=== PATIENT | female | born 1990 | race Caucasian/White ===

== ENCOUNTER 2019-05-26 08:20 | Inpatient (IN) | payer BC ==
[2019-05-26 09:40] VITALS: BMI 37.0
[2019-05-26 09:41] LABS: BASO % 0.2 % (0-2.0); EOS % 1.7 % (0-4.5); HEMATOCRIT 34.3 % (32.4-45.2); HEMOGLOBIN 11.1 GM/dL (10.7-15.3); LYMPH % 11.9 % (8-40); MCHC 32.3 g/dl (32.0-36.0); MEAN CELL VOLUME 80.5 fl (80-96); MEAN PLT VOLUME 8.7 fl (7.5-11.1); MONO % 6.3 % (3.8-10.2); NEUT % 79.9 % (42.8-82.8); PLATELET COUNT 258 K/MM3 (134-434); RBC 4.26 M/mm3 (3.60-5.2); RDW 16.6 % (11.6-15.6); WHITE BLOOD COUNT 12.9 K/mm3 (4.0-10.0)
[2019-05-26 09:49] LABS: INR 1.02 (0.83-1.09)
[2019-05-26 09:52] LABS: ACTIVATED PTT 26.9 SECONDS (25.2-36.5)
[2019-05-26] MEDS ORDERED: DEXTROSE 5%-LACTATED RINGERS 1,000 ML IV SCH (10:00)
[2019-05-26 10:03] LABS: BLOOD UREA NITROGEN 6.4 mg/dL (7-18); CALCIUM 8.6 mg/dL (8.5-10.1); CREATININE 0.4 mg/dL (0.55-1.3); POTASSIUM 4.1 mmol/L (3.5-5.1)
[2019-05-26] MEDS ORDERED: DINOPROSTONE 10 MG VAGINAL SUPPOSITORY VG ONE (11:00)
[2019-05-26] MEDS ORDERED: BUTORPHANOL TARTRATE 1 MG/ML VIAL IVPB ONE (11:24)
[2019-05-26] MEDS ORDERED: PROMETHAZINE HCL 25 MG/1 ML VIAL IVPUSH ONE (11:24)
[2019-05-26] MEDS ORDERED: SODIUM PHOSPHATE/NA BIPHOS 133 ML ENEMA PR ONE (11:28)
--- NOTE | 2019-05-26 11:39 | HP ---
Past Medical History - Primary Care Physician PCP:: Etta Lieberman - Admission Chief Complaint: 29 yrs , 41.2 weeks iup admitted for induction of labor History of Present Illness: PNC at 2, [facility] wt gain 32 lbs panel : 12/16/18 O pos, Rpr nr, Hbsag neg, Rubella immune , Quantiferon neg , Varicella immune , Pap NILM, Hpv neg, Gc/c/t neg , CF screen neg 02/09/19 ; Gct 130, Quantiferon neg 04/27/19 : GBS pos, Gc/ct neg , 05/05/19 c/o pruritis rx benadryl &bile acids & LFT wnl sonogram : NT screen was not done, Quad screen neg , last sono on 05/22/19 : vx , luis 11.7, bpp8/8, efw 7'9" (3441gm ) surviellence in theclinic by NST done TDAP vaccine given History Source: Patient, Medical Record Limitations to Obtaining History: No Limitations - Past Medical History Cardiovascular: No: HTN, Murmur Pulmonary: No: Asthma Gastrointestinal: Yes: GERD, Other (none known) Hepatobiliary: Yes: Other (none known) Renal/: No: UTI ...: 1 ...LMP: 08/11/18 ... Weeks Gestation by Dates: 41.2 ...EDC by Dates: 05/18/19 ...EDC by Sono: 05/18/19 Heme/Onc: Yes: Other (none known) Infectious Disease: No: AIDS, C-Diff, Herpes Zoster, HIV, MRSA, STD's, Tuberculosis, VREF, Other Psych: No: Addictions, Anxiety, Bipolar, Depression, Panic, Psychosis, Schizophrenia, Other Endocrine: No: Raphael's Disease, Benham's Disease, Diabetes Insipidus, Diabetes Mellitus, Hyperparathyroidism, Hyperthyroidism, Hypothyroidism, Osteopenia, SIADH, Other - Past Surgical History Past Surgical History: Yes: None Hx Myomectomy: No Hx Transabdominal Cerclage: No - Smoking History Smoking history: Unknown if ever smoked Have you smoked in the past 12 months: No - Alcohol/Substance Use Hx Alcohol Use: No History of Substance Use: reports: None Home Medications - Allergies Allergies/Adverse Reactions: Allergies Allergy/AdvReac Type Severity Reaction Status Date / Time No Known Allergies Allergy Verified 05/26/19 09:43 - Home Medications Home Medications: Ambulatory Orders Prenat 115/Iron Fum/Folic/Dss [ 19 Tablet] 1 tab PO DAILY 05/09/19 Physical Exam - Maternity Vital Signs: Vital Signs Temperature 98.2 F 05/26/19 09:26 Pulse Rate 84 05/26/19 09:26 Respiratory Rate 18 05/26/19 09:26 Blood Pressure 118/61 05/26/19 09:26 O2 Sat by Pulse Oximetry (%) Constitutional: Yes: Well Nourished, No Distress Eyes: Yes: WNL HENT: Yes: WNL Neck: Yes: WNL Cardiovascular: Yes: WNL, Regular Rate and Rhythm Lungs: Clear to auscultation Breast(s): Yes: WNL - Abdominal Exam/OB Fundal Height: 40 Number of Fetuses: Single Presentation: Vertex Contractions: No Regularity: Irregular Intensity: Unaware Heart Rate (range): 145 Heart Rate Location: [facility] Category: I Accelerations: Uniform Decelerations: None - Vaginal Exam/OB Vaginal Bleediing: No Speculum Exam: No Dilatation (cm): close Effacement (%): 50 Amniotic Membrane Status: Intact Presentation: Vertex/Position Station: -3 (-3/-4) - Physical Exam Musculoskeletal: Yes: WNL Extremities: Yes: WNL. No: Calf Tenderness Edema: LLE: 1+, RLE: 1+ Integumentary: Yes: Other (h/o pruritis) Deep Tendon Reflex Grade: Normal +2 ...Motor Strength: WNL Psychiatric: Yes: WNL, Alert, Oriented - Labs Lab Results: CBC, BMP 05/26/19 09:05 05/26/19 09:05 Laboratory Tests 05/26/19 05/26/19 09:05 09:05 PT with INR 12.00 INR 1.02 PTT (Actin FS) 26.9 Blood Type O POSITIVE Antibody Screen Negative Problem List - Problems (1) Post term at 41 weeks gestation Code(s): O48.0 - POST-TERM ; Z3A.41 - 41 WEEKS GESTATION OF (2) Elective induction of labor planned Code(s): [id number] - Assessment/Plan 29 yrs 41.2 weeks , admitted for induction of labor. GBS pos Plan cervidil induction trial of labor for vaginal delivery Gbs prophylaxis with iv Ampicillin
[2019-05-26] MEDS ORDERED: PROMETHAZINE HCL 25 MG/1 ML VIAL ONE (12:24)
[2019-05-26] MEDS ORDERED: BUTORPHANOL TARTRATE 1 MG/ML VIAL ONE ×2 (12:24)
[2019-05-26] MEDS ORDERED: AMPICILLIN SODIUM 2 GM VIAL ONE (12:25)
--- NOTE | 2019-05-26 12:32 | HP ---
Past Medical History - Past Medical History Cardiovascular: No: HTN, Murmur Pulmonary: No: Asthma Gastrointestinal: Yes: GERD, Other (none known) Hepatobiliary: Yes: Other (none known) Renal/: No: UTI ...: 1 ...LMP: 08/11/18 ... Weeks Gestation by Dates: 41.2 ...EDC by Dates: 05/18/19 ...EDC by Sono: 05/18/19 Heme/Onc: Yes: Other (none known) Infectious Disease: No: AIDS, C-Diff, Herpes Zoster, HIV, MRSA, STD's, Tuberculosis, VREF, Other Psych: No: Addictions, Anxiety, Bipolar, Depression, Panic, Psychosis, Schizophrenia, Other Endocrine: No: Lockridge's Disease, Dann's Disease, Diabetes Insipidus, Diabetes Mellitus, Hyperparathyroidism, Hyperthyroidism, Hypothyroidism, Osteopenia, SIADH, Other - Past Surgical History Past Surgical History: Yes: None - Smoking History Smoking history: Unknown if ever smoked Have you smoked in the past 12 months: No - Alcohol/Substance Use Hx Alcohol Use: No History of Substance Use: reports: None Home Medications - Allergies Allergies/Adverse Reactions: Allergies Allergy/AdvReac Type Severity Reaction Status Date / Time No Known Allergies Allergy Verified 05/26/19 09:43 - Home Medications Home Medications: Ambulatory Orders Prenat 115/Iron Fum/Folic/Dss [ 19 Tablet] 1 tab PO DAILY 05/09/19 Physical Exam - Maternity Vital Signs: Vital Signs Temperature 98.2 F 05/26/19 09:26 Pulse Rate 84 05/26/19 09:26 Respiratory Rate 18 05/26/19 09:26 Blood Pressure 118/61 05/26/19 09:26 O2 Sat by Pulse Oximetry (%) - Labs Lab Results: CBC, BMP 05/26/19 09:05 05/26/19 09:05 Problem List - Problems (1) Post term at 41 weeks gestation Code(s): O48.0 - POST-TERM ; Z3A.41 - 41 WEEKS GESTATION OF (2) Elective induction of labor planned Code(s): [id number] -
--- NOTE | 2019-05-26 12:37 | PN ---
Progress Note (short form) - Note Progress Note: pt sresponded to cervidil tachysystole is noted pt sceaming with pain 12.30 FHR 140-150 bpm cat-1 uc q 1min vag : 2-3 cm/60%.UT vx -3 well applied to cx Plan cervidil removed stadol 2mg + phenrgan [address] trial of vag deli If Uc space out , will start pitocin augmentation Problem List - Problems (1) Post term at 41 weeks gestation Code(s): O48.0 - POST-TERM ; Z3A.41 - 41 WEEKS GESTATION OF (2) Elective induction of labor planned Code(s): [id number] -
[2019-05-26] MEDS ORDERED: AMPICILLIN - 2 GM in SODIUM CHLORIDE 100 ML IVPB ONE (13:00)
[2019-05-26] MEDS ORDERED: FENTANYL/BUPIVACAINE/NS/PF - PCEA - 50 ML DISP.SYRIN EP ONE ×2 (14:42→20:00)
[2019-05-26] MEDS ORDERED: FENTANYL/BUPIVACAINE/NS/PF - PCEA - 50 ML DISP.SYRIN EP SCH (15:10)
--- NOTE | 2019-05-26 15:14 | PN ---
Progress Note, Labor Vaginal Exam #1 Labor Exam Date: 05/26/19 Labor Exam Time: 14:30 Heart Rate (range): 130 Dilatation: 5 Effacement (%): 80 Amniotic Membrane Status: Ruptured Presentation: Vertex/Position Station: -2 Remarks: Uc 1-2 min fhr 130, cat -1 pt c/o pain, screaming again, drowsy stadol 2mg + phenrgan 25 mg iv given at 11.30 AM Plan epidural labor analgesia Selected Entries 05/26/19 12:50 Temperature 98.2 F Pulse Rate 110 H Blood Pressure 126/76 Vaginal Exam #2 Labor Exam Date: 05/26/19 Labor Exam Time: 17:15 Heart Rate (range): 130 Dilatation: 6-7 Effacement (%): 80 Amniotic Membrane Status: Ruptured (srom at 2.30 PM clear liquid) Presentation: Vertex/Position Station: -2 (caput to-1) Remarks: fhr at 17 .00 hr down to 90 bpm , deep variable decel, cat-2 , pt turned to lt side , fhr recovered to cat-1 base line 140-150, scalp electrode applied uc 1-2 min pitocin was started at 4.15 PM , stopped at 4.45 , max 2iu/min was given Selected Entries 05/26/19 17:15 Pulse Rate 98 H Blood Pressure 106/66 Vaginal Exam #3 Labor Exam Date: 05/26/19 Labor Exam Time: 19:36 Heart Rate (range): 140 Dilatation: 6-7 Effacement (%): 80 Amniotic Membrane Status: Ruptured Presentation: Vertex/Position Station: -1 (caput, cx edematous on lt side) Remarks: after exam fhr down to 90-100bpm x 2 min cat-2 recovered , otherwise fhr cat-1 uc 2-3 min Selected Entries 05/26/19 05/26/19 05/26/19 19:00 19:15 19:30 Temperature 99.8 F H Pulse Rate 117 H 111 H 139 H Blood Pressure 128/68 125/63 126/60 05/26/19 19:45 Temperature Pulse Rate 111 H Blood Pressure 121/[address] trial of labor Vaginal Exam #4 Labor Exam Date: 05/26/19 Labor Exam Time: 21:30 Heart Rate (range): 140 Dilatation: 7 Effacement (%): 90 Amniotic Membrane Status: Ruptured Presentation: Vertex/Position Station: 0 (caput, moulding) Remarks: fhr cat-1 uc dysfunctional,mild tp moderate , 1-2-3 min plan pit augmentation at 0.5miu. to improve intensity of UC Selected Entries 05/26/19 05/26/19 05/26/19 21:30 21:38 22:00 Temperature 99.3 F 99.7 F H Pulse Rate 126 H Blood Pressure 124/[address] trial of labor Vaginal Exam #5 Labor Exam Date: 05/26/19 Labor Exam Time: 23:35 Heart Rate (range): 140 Dilatation: 7 Effacement (%): 90 Amniotic Membrane Status: Ruptured Presentation: Vertex/Position Station: 0 (caput , moulding) Remarks: fhr cat-2 , variable decels , 90-140, uc 1-2-3 min pt stopped Imp : FTP ( protracted active phase of labor ) fhr cat-2 , ( non reassuring FHR ) Plan stop trial of labor delivery by Primary LFT/C/Section Selected Entries 05/26/19 05/26/19 22:30 23:00 Temperature 98.5 F Pulse Rate 122 H Blood Pressure 122/61
[2019-05-26] MEDS ORDERED: ELECTROLYTE-148 SOLN 1,000 ML IV SCH (15:15)
[2019-05-26] MEDS ORDERED: NALOXONE HCL 0.4 MG/ML VIAL IVPUSH PRN (15:35)
[2019-05-26] MEDS ORDERED: OXYTOCIN 30 UNITS in 0.9% NS 30 UNIT/500 ML INFUS.BAG IVPB SCH (15:45)
[2019-05-26] MEDS ORDERED: AMPICILLIN SODIUM 1 GM VIAL ONE ×2 (16:17→20:25)
[2019-05-26] MEDS ORDERED: OXYTOCIN 30 UNITS in 0.9% NS 30 UNIT/500 ML INFUS.BAG IVPB ONE (16:17)
[2019-05-26] MEDS: AMPICILLIN - 1 GM in SODIUM CHLORIDE 100 ML IVPB SCH ×2 (16:37→20:33)
[2019-05-26] MEDS ORDERED: CITRIC ACID/SODIUM CITRATE 30 ML UNIT-DOSE CUP PO ONE (23:45)
[2019-05-26] MEDS ORDERED: OXYTOCIN 20 UNITS in 0.9% NS 20 UNIT/1,000 ML INFUS.BAG IV ONE (23:49)
[2019-05-27] MEDS ORDERED: SODIUM BICARBONATE 8.4% 50 MEQ/50 ML VIAL ONE (00:05)
[2019-05-27] MEDS ORDERED: LIDO 2%/EPI 1:200000 PRESRVFRE (20 ML SDVIAL) ONE (00:05)
[2019-05-27] MEDS ORDERED: OXYTOCIN 20 UNITS in 0.9% NS 20 UNIT/1,000 ML INFUS.BAG IV ONE (00:12)
[2019-05-27] MEDS ORDERED: ceFAZolin SODIUM 1 GM VIAL ONE (00:18)
[2019-05-27] MEDS ORDERED: METHYLERGONOVINE MALEATE 0.2 MG/1 ML AMP IM PRN (01:30)
[2019-05-27] MEDS ORDERED: IBUPROFEN 800 MG/8 ML IJ IVPB PRN (01:30)
[2019-05-27] MEDS ORDERED: OXYTOCIN 20 UNITS in 0.9% NS 20 UNIT/1,000 ML INFUS.BAG IV SCH (01:30)
[2019-05-27] MEDS ORDERED: ONDANSETRON 4 MG/2 ML VIAL IVPUSH PRN (01:37)
--- NOTE | 2019-05-27 01:43 | OP ---
Operative Note - Note: Operative Date: 05/27/19 Pre-Operative Diagnosis: 41 wks, failure to progress , non reassuring FHR Operation: Primary LFTC/Section Findings: TOB 12.33 AM, , Baby Boy, Vx, ROP position, 9/9 , Wt 7"6", Ht 19 " Amniotic Fluid clear Both tubes & ovaries normal French Folding Machine Operator Dr Recio Surgeon: Etta Lieberman Lecturer In Marketing: Jay Lagunas Anesthesiologist/STUNNER: Phuc Pickard Anesthesia: Epidural Specimens Removed: placenta. cord segment for cord blood. cord blood Estimated Blood Loss (mls): 700 Drains, Volume Out (mls): 400 (urine delonte color in tubing, in the bag blood stained ) Fluid Volume Replaced (mls): 800 (2 gm iv ancef given ) Operative Report Dictated: Yes
--- NOTE | 2019-05-27 02:02 | PN ---
Delivery - Delivery Section: Primary, Low Flap Transverse (Indication : 41 weeks, Failure to progress in labor , non reassuring FHR) Type of Anesthesia: Epidural EBL (cc): 700 (Intraop friedman output 400 ml, delonte in tubing, blood stained in the bag ) Delivery, Single - Stages of Labor Date 1st Stage Initiatied: 05/26/19 Time 1st Stage Initiated: 12:00 Date of Delivery: 05/27/19 Time of Delivery: 12:33 Date Placenta Delivered: 05/27/19 Time Placenta Delivered: 12:35 Placenta: Yes: Manual Removal, Uterine Exploration - Condition of Infant Surgeon Assistant/Meat Inspector Present: Yes Name: Lolis Recio Infant Gender: Male Weight: 7 lb 6 oz Position: Right, OP Total Hours ROM (Hrs/Mins): 10hrs, 3 min - 1 Minute Total Score: 9 10 Minutes Total Score: 9 - [place] Feeding Plan Initial Plan: Elected not to breastfeed exclusively throughout hospitalization Remarks - Remarks Remarks: 29 yrs , 41 weeks for induction of labor pnc at [address] [place] [address] GBS pos, prophylaxis Iv ampicillin x3 doses Intraop 2 gm Iv ancef Intraop course uneventful . post Op Temp 99.3, 118/58, pulse 117/min
[2019-05-27] MEDS: AMPICILLIN - 1 GM in SODIUM CHLORIDE 100 ML IVPB SCH (04:13)
[2019-05-27] MEDS: ACETAMINOPHEN 325 MG TABLET (FP) PO PRN ×2 (07:31→15:32)
[2019-05-27] MEDS ORDERED: CEFAZOLIN 1 GM/D5W 1 GM/50 ML BAG IVPB SCH (08:00)
[2019-05-27] MEDS: CEFAZOLIN 1 GM/D5W 1 GM/50 ML BAG IVPB SCH ×5 (08:00→23:53)
--- NOTE | 2019-05-27 08:20 | OP ---
DATE OF OPERATION: 05/27/2019 PREOPERATIVE DIAGNOSIS: 41-week , failure to progress, nonreassuring heart. OPERATION: Primary low flap transverse section. SURGEON: Etta Lieberman MD SUSTAINABLE DESIGN COORDINATOR SURGEON: Jay Lagunas MD TRANSIT PLANNING MANAGER: Cherry Recio MD ANESTHESIOLOGIST: Phuc Pickard DO ANESTHESIA: Spinal. FINDINGS: This is a 29-year-old 1, para 0. She is 41 weeks . Was admitted for induction of labor. Cervidil was inserted. Cervix was closed, and within 1-1/2 hours she started developing uterine contractions, tachysystole, and she had dilated to 2 cm. Cervidil was removed, and patient was given Stadol. Patient continued to have contractions on her own and then she received epidural. She was 5 cm dilated. That was at 2:30 PM. She ruptured the membranes spontaneously. She was 5-6 and 6-7 at 5:30. She dilated only up to 7 cm until 11:30, and station was -1, caput large, and periodically she was having decelerations, and she had a low-grade fever of 99.8 maximum. So it was decided to dlv the patient by C section. Before the surgery, the urine was blood stained, and the Swanson bag was emptied before starting the C section. DESCRIPTION OF PROCEDURE: Abdomen was shaved, prepped. Swanson catheter was placed, and consent was taken. SCD stockings were placed. She was taken to the operating room table, and she was in supine position. Epidural analgesia was converted into epidural anesthesia. Abdomen was painted and draped in usual manner and then the skin incision, Pfannenstiel incision, was made in skin, subcutaneous tissue. Anterior rectus sheath was incised transversely. Bleeding points were clamped and cauterized. Rectus muscle was from the rectus sheath. Parietal peritoneum was opened vertically, and the lower flap bladder peritoneum was incised transversely. The bladder was very high in the middle of the incision, and carefully the bladder was pushed down then the lower uterine segment was incised above the bladder reflection, and uterine incision was extended laterally. The baby was delivered from ROP position at 12:33 AM. Amniotic fluid was clear. Immediate suction oral and nasal was done after the delivery of the head then the rest of the body was delivered. Cord was clamped, cut. Cord blood was collected, and cord segment was sent for the cord blood gases. Also placenta was removed completely with the membranes. Uterine cavity was clean. There was a subserous fibroid noted above the bowel 2 cm above the incision. It was about 4 cm, round, subserous fibroid. There were small other seedlings noted. Then uterine incision was closed with 2 layers. First layer was a continuous locking with a Biosyn 0 suture. Second layer was a continuous intermittent locking with a Biosyn 0 suture. Hemostasis was verified, and the bladder peritoneum was closed with a Biosyn single suture, and both tubes and ovaries were normal. Irrigation was done. Sponge, needle, needle count was correct, and the closure of the abdomen was done. Parietal peritoneum was closed with a Vicryl 0 suture. Muscles were approximated together with a Vicryl 0 suture. Interrupted sutures were taken. Anterior rectus sheath was taken with a Vicryl 0 suture. Continuous sutures were taken. Then subcutaneous tissue was approximated with interrupted Vicryl 0 sutures. The skin was approximated with the patricia. Patient tolerated procedure well, and the pressure dressing was given. Blood clots were removed from the vagina, and patient then was transferred to the recovery room in stable condition. Estimated blood loss was 700 mL. Intraoperative urine output was about 400 mL in the catheter tube. The urine was delonte color in the bag. It was blood-stained urine. She received 2 g of IV Ancef prior to the incision. She was GBS positive, so she was receiving ampicillin prophylaxis during the labor. She received total of 3 doses. Patient was transferred to the recovery room in stable condition. Ryan [id number]
[2019-05-27 08:41] LABS: BASO % 0.1 % (0-2.0); EOS % 0.2 % (0-4.5); HEMATOCRIT 29.5 % (32.4-45.2); HEMOGLOBIN 9.7 GM/dL (10.7-15.3); LYMPH % 5.7 % (8-40); MCH 26.5 pg (25.7-33.7); MCHC 32.9 g/dl (32.0-36.0); MEAN CELL VOLUME 80.6 fl (80-96); MEAN PLT VOLUME 8.5 fl (7.5-11.1); MONO % 3.9 % (3.8-10.2); NEUT % 90.1 % (42.8-82.8); PLATELET COUNT 230 K/MM3 (134-434); RBC 3.66 M/mm3 (3.60-5.2); RDW 16.8 % (11.6-15.6); WHITE BLOOD COUNT 16.8 K/mm3 (4.0-10.0)
[2019-05-27] MEDS ORDERED: FLU VACC QS2019-20(6MOS UP)/PF 60 MCG/0.5 ML SYRINGE IM ONE (09:00)
--- NOTE | 2019-05-27 15:15 | PN ---
Post Progress Note - Subjective Subjective: no c/o pain , pain scale 4/10 , c/o itching Post Day: 0 Type of Delivery: Primary C/S Vital Signs: Vital Signs Temperature 99.8 F H 05/27/19 08:00 Pulse Rate 121 H 05/27/19 08:00 Respiratory Rate 20 05/27/19 13:00 Blood Pressure 110/54 L 05/27/19 08:00 O2 Sat by Pulse Oximetry (%) 98 05/27/19 02:15 Breast Exam: Yes: Soft, Other (plans to BF ). No: Engorged Uterus: Yes: Fundus Firm, Fundus below umbilicus Incision: Yes: Dressing dry and intact. No: Redness Abdomen/GI: Yes: Abdomen soft (bs active ), Abdominal Distention (obese abdomen ), Tender, Tolerating PO (po clear fluid ). No: Passing flatus Lochia: Yes: Rubra Lochia, amount: Moderate Extremities: Yes: Calves non-tender, Edema (scd in situ ) Perineum: Yes: Intact Activity: Other (pt not oob yet ) - Labs Labs: CBC WBC 16.8 K/mm3 (4.0-10.0) H 05/27/19 08:15 RBC 3.66 M/mm3 (3.60-5.2) 05/27/19 08:15 Hgb 9.7 GM/dL (10.7-15.3) L 05/27/19 08:15 Hct 29.5 % (32.4-45.2) L 05/27/19 08:15 MCV 80.6 fl (80-96) 05/27/19 08:15 MCH 26.5 pg (25.7-33.7) 05/27/19 08:15 MCHC 32.9 g/dl (32.0-36.0) 05/27/19 08:15 RDW 16.8 % (11.6-15.6) H 05/27/19 08:15 Plt Count 230 K/MM3 (134-434) 05/27/19 08:15 MPV 8.5 fl (7.5-11.1) 05/27/19 08:15 Absolute Neuts (auto) 15.1 K/mm3 (1.5-8.0) H 05/27/19 08:15 Neutrophils % 90.1 % (42.8-82.8) H 05/27/19 08:15 Lymphocytes % 5.7 % (8-40) L D 05/27/19 08:15 Monocytes % 3.9 % (3.8-10.2) 05/27/19 08:15 Eosinophils % 0.2 % (0-4.5) D 05/27/19 08:15 Basophils % 0.1 % (0-2.0) 05/27/19 08:15 Nucleated RBC % 0 % (0-0) 05/27/19 08:15 Other Findings, Remarks: i/o 3150/3250 Rs cta cvs sinus tachycardia Problem List - Problems (1) Post term at 41 weeks gestation Code(s): O48.0 - POST-TERM ; Z3A.41 - 41 WEEKS GESTATION OF (2) Elective induction of labor planned Code(s): [id number] - (3) Failure to progress in labor Code(s): O62.2 - OTHER UTERINE INERTIA (4) Non-reassuring heart rate or rhythm affecting management of fetus Code(s): ENX0019 - (5) delivery due to maternal disorder, delivered, curr hospitaliz Code(s): O99.89 - OTH DISEASES AND CONDITIONS COMPL PREG/CHLDBRTH (6) Status post section routine follow-up Code(s): Z39.2 - ENCOUNTER FOR ROUTINE FOLLOW-UP; Z98.891 - HISTORY OF UTERINE SCAR FROM PREVIOUS SURGERY Assessment/Plan po c/section , tachycardia, low grade fever post op plan encourage po fluids, ambulation, movements in the bed , deep breathing ex
[2019-05-27] MEDS: IBUPROFEN 600 MG TABLET (FP) PO PRN ×2 (15:30→23:51)
[2019-05-27] MEDS: ENOXAPARIN NA (PORCINE) 40 MG/0.4 ML DISP.SYRIN SQ SCH (15:30)
[2019-05-27] MEDS: SIMETHICONE 80 MG TAB.CHEW (FP) PO PRN ×2 (15:30→23:50)
[2019-05-27] MEDS: oxyCODONE HCL 5 MG TABLET PO PRN ×2 (16:43→23:50)
[2019-05-28] MEDS ORDERED: BISACODYL 10 MG SUPP.RECT RC PRN (01:31)
[2019-05-28 08:07] LABS: BASO % 0.1 % (0-2.0); EOS % 0.8 % (0-4.5); HEMATOCRIT 30.6 % (32.4-45.2); HEMOGLOBIN 9.8 GM/dL (10.7-15.3); LYMPH % 6.1 % (8-40); MEAN CELL VOLUME 81.3 fl (80-96); MEAN PLT VOLUME 8.5 fl (7.5-11.1); MONO % 5.1 % (3.8-10.2); NEUT % 87.9 % (42.8-82.8); PLATELET COUNT 247 K/MM3 (134-434); RBC 3.76 M/mm3 (3.60-5.2); RDW 16.8 % (11.6-15.6); WHITE BLOOD COUNT 17.8 K/mm3 (4.0-10.0)
--- NOTE | 2019-05-28 08:27 | PN ---
Post Progress Note - Subjective Subjective: c/o pain scale 6/10 voiding without difficulty Post Day: 1 Type of Delivery: Primary C/S Vital Signs: Vital Signs Temperature 97.9 F 05/27/19 22:00 Pulse Rate 90 05/27/19 22:00 Respiratory Rate 18 05/28/19 01:00 Blood Pressure 113/63 05/27/19 22:00 O2 Sat by Pulse Oximetry (%) 98 05/27/19 02:15 Breast Exam: Yes: Soft (BF). No: Engorged Uterus: Yes: Fundus Firm, Fundus below umbilicus, Non-tender Incision: Yes: [place] intact. No: Redness, Oozing Abdomen/GI: Yes: Abdomen soft (bs active ), Abdominal Distention (obese abdomen) , Tender, Passing flatus, Tolerating PO (po fluids) Lochia: Yes: Rubra Lochia, amount: Moderate Extremities: Yes: Calves non-tender Perineum: Yes: Intact Activity: Ambulating - Labs Labs: CBC WBC 16.8 K/mm3 (4.0-10.0) H 05/27/19 08:15 RBC 3.66 M/mm3 (3.60-5.2) 05/27/19 08:15 Hgb 9.7 GM/dL (10.7-15.3) L 05/27/19 08:15 Hct 29.5 % (32.4-45.2) L 05/27/19 08:15 MCV 80.6 fl (80-96) 05/27/19 08:15 MCH 26.5 pg (25.7-33.7) 05/27/19 08:15 MCHC 32.9 g/dl (32.0-36.0) 05/27/19 08:15 RDW 16.8 % (11.6-15.6) H 05/27/19 08:15 Plt Count 230 K/MM3 (134-434) 05/27/19 08:15 MPV 8.5 fl (7.5-11.1) 05/27/19 08:15 Absolute Neuts (auto) 15.1 K/mm3 (1.5-8.0) H 05/27/19 08:15 Neutrophils % 90.1 % (42.8-82.8) H 05/27/19 08:15 Lymphocytes % 5.7 % (8-40) L D 05/27/19 08:15 Monocytes % 3.9 % (3.8-10.2) 05/27/19 08:15 Eosinophils % 0.2 % (0-4.5) D 05/27/19 08:15 Basophils % 0.1 % (0-2.0) 05/27/19 08:15 Nucleated RBC % 0 % (0-0) 05/27/19 08:15 Selected Entries 05/27/19 08:00 Temperature 99.8 F H Pulse Rate 121 H Blood Pressure 110/54 L Laboratory Tests 05/27/19 05/28/19 08:15 07:39 WBC 16.8 H 17.8 H RBC 3.76 Hgb 9.7 L 9.8 L Hct 29.5 L 30.6 L MCV 81.3 MCH 26.0 MCHC 32.0 RDW 16.8 H Plt Count 230 247 MPV 8.5 Absolute Neuts (auto) 15.6 H Neutrophils % 90.1 H 87.9 H Lymphocytes % 5.7 L D 6.1 L Monocytes % 3.9 5.1 Eosinophils % 0.8 D Basophils % 0.1 Problem List - Problems (1) Post term at 41 weeks gestation Code(s): O48.0 - POST-TERM ; Z3A.41 - 41 WEEKS GESTATION OF (2) Elective induction of labor planned Code(s): [id number] - (3) Failure to progress in labor Code(s): O62.2 - OTHER UTERINE INERTIA (4) Non-reassuring heart rate or rhythm affecting management of fetus Code(s): [id number] - (5) delivery due to maternal disorder, delivered, curr hospitaliz Code(s): O99.89 - OTH DISEASES AND CONDITIONS COMPL PREG/CHLDBRTH (6) Status post section routine follow-up Code(s): Z39.2 - ENCOUNTER FOR ROUTINE FOLLOW-UP; Z98.891 - HISTORY OF UTERINE SCAR FROM PREVIOUS SURGERY Assessment/Plan ct po care ct iv ancef today also , wbc count still high advance to reg diet
[2019-05-28] MEDS: ENOXAPARIN NA (PORCINE) 40 MG/0.4 ML DISP.SYRIN SQ SCH (09:05)
[2019-05-28] MEDS: PRENATAL VITAMINS W/ FOLIC ACID TABLET (FP) PO SCH (09:05)
[2019-05-28] MEDS: CEFAZOLIN 1 GM/D5W 1 GM/50 ML BAG IVPB SCH ×2 (09:05→17:02)
[2019-05-28] MEDS: FERROUS SO4 325 MG TABLET (FP) PO SCH ×2 (09:05→21:28)
[2019-05-28] MEDS ORDERED: FLU VACCINE QUAD 60 MCG/0.5 ML (MDV 19-20) IM ONE (10:00)
[2019-05-28] MEDS: IBUPROFEN 600 MG TABLET (FP) PO PRN ×2 (14:33→23:50)
[2019-05-28] MEDS: ACETAMINOPHEN 325 MG TABLET (FP) PO PRN ×2 (14:34→23:50)
[2019-05-28] MEDS: SIMETHICONE 80 MG TAB.CHEW (FP) PO PRN ×2 (14:34→23:50)
--- NOTE | 2019-05-28 20:00 | PN ---
Progress Note (short form) - Note Progress Note: Anesthesiology Post-op POD#1 s/p C/S under epidural anesthesia. Pt. doing well today. No acute issues. Voiding without difficulty. Tolerating PO. No h/a. No apparent residual anesthesia. VSS. 29 y.o. woman with stable post-operative course. Continue management as per primary team.
[2019-05-28] MEDS: SENNOSIDES/DOCUSATE COMBO (SENNA PLUS) TABLET (UD) PO PRN (21:28)
[2019-05-29] MEDS: CEFAZOLIN 1 GM/D5W 1 GM/50 ML BAG IVPB SCH ×3 (01:20→18:16)
--- NOTE | 2019-05-29 08:28 | PN ---
Post Progress Note - Subjective Subjective: c/o pain 02/08 no foul smelling odor in lochia voiding without difficulty Post Day: 2 Type of Delivery: Primary C/S Vital Signs: Vital Signs Temperature 98 F 05/28/19 22:00 Pulse Rate 107 H 05/28/19 22:00 Respiratory Rate 18 05/28/19 22:00 Blood Pressure 123/73 05/28/19 22:00 O2 Sat by Pulse Oximetry (%) 98 05/27/19 02:15 Breast Exam: Yes: Soft, Other (BF & bottle feeding ). No: Engorged Uterus: Yes: Fundus Firm, Fundus below umbilicus, Other (tender ) Incision: Yes: [place] intact. No: Redness, Oozing Abdomen/GI: Yes: Abdomen soft, Abdominal Distention (obese abdomen ), Tender, Passing flatus (bm done ), Tolerating PO (diet) Lochia: Yes: Rubra Lochia, amount: Moderate Extremities: Yes: Calves non-tender Perineum: Yes: Intact Activity: Ambulating - Labs Labs: CBC WBC 17.8 K/mm3 (4.0-10.0) H 05/28/19 07:39 RBC 3.76 M/mm3 (3.60-5.2) 05/28/19 07:39 Hgb 9.8 GM/dL (10.7-15.3) L 05/28/19 07:39 Hct 30.6 % (32.4-45.2) L 05/28/19 07:39 MCV 81.3 fl (80-96) 05/28/19 07:39 MCH 26.0 pg (25.7-33.7) 05/28/19 07:39 MCHC 32.0 g/dl (32.0-36.0) 05/28/19 07:39 RDW 16.8 % (11.6-15.6) H 05/28/19 07:39 Plt Count 247 K/MM3 (134-434) 05/28/19 07:39 MPV 8.5 fl (7.5-11.1) 05/28/19 07:39 Absolute Neuts (auto) 15.6 K/mm3 (1.5-8.0) H 05/28/19 07:39 Neutrophils % 87.9 % (42.8-82.8) H 05/28/19 07:39 Lymphocytes % 6.1 % (8-40) L 05/28/19 07:39 Monocytes % 5.1 % (3.8-10.2) 05/28/19 07:39 Eosinophils % 0.8 % (0-4.5) D 05/28/19 07:39 Basophils % 0.1 % (0-2.0) 05/28/19 07:39 Nucleated RBC % 0 % (0-0) 05/28/19 07:39 Problem List - Problems (1) Post term at 41 weeks gestation Code(s): O48.0 - POST-TERM ; Z3A.41 - 41 WEEKS GESTATION OF (2) Elective induction of labor planned Code(s): [id number] - (3) Failure to progress in labor Code(s): O62.2 - OTHER UTERINE INERTIA (4) Non-reassuring heart rate or rhythm affecting management of fetus Code(s): [id number] - (5) delivery due to maternal disorder, delivered, curr hospitaliz Code(s): O99.89 - OTH DISEASES AND CONDITIONS COMPL PREG/CHLDBRTH (6) Status post section routine follow-up Code(s): Z39.2 - ENCOUNTER FOR ROUTINE FOLLOW-UP; Z98.891 - HISTORY OF UTERINE SCAR FROM PREVIOUS SURGERY Assessment/Plan post op c/s x2 still uterine tenderness , may be endomyometritis & anemia Plan ct iv ancef until today , may consider po antibiotics will discharge on po day #4
[2019-05-29] MEDS: FERROUS SO4 325 MG TABLET (FP) PO SCH ×2 (09:30→21:34)
[2019-05-29] MEDS: PRENATAL VITAMINS W/ FOLIC ACID TABLET (FP) PO SCH (09:30)
[2019-05-29] MEDS: ENOXAPARIN NA (PORCINE) 40 MG/0.4 ML DISP.SYRIN SQ SCH (09:32)
[2019-05-29] MEDS: IBUPROFEN 600 MG TABLET (FP) PO PRN ×2 (11:49→21:34)
[2019-05-29] MEDS: SIMETHICONE 80 MG TAB.CHEW (FP) PO PRN ×2 (11:49→21:34)
[2019-05-29] MEDS: ACETAMINOPHEN 325 MG TABLET (FP) PO PRN (11:49)
[2019-05-29] MEDS: SENNOSIDES/DOCUSATE COMBO (SENNA PLUS) TABLET (UD) PO PRN (21:34)
[2019-05-29] MEDS: oxyCODONE HCL 5 MG TABLET PO PRN (21:35)
[2019-05-30 07:19] LABS: BASO % 0.3 % (0-2.0); EOS % 3.3 % (0-4.5); HEMATOCRIT 29.4 % (32.4-45.2); HEMOGLOBIN 9.7 GM/dL (10.7-15.3); LYMPH % 12.2 % (8-40); MCH 26.6 pg (25.7-33.7); MCHC 33.1 g/dl (32.0-36.0); MEAN CELL VOLUME 80.3 fl (80-96); MEAN PLT VOLUME 8.4 fl (7.5-11.1); MONO % 4.3 % (3.8-10.2); NEUT % 79.9 % (42.8-82.8); PLATELET COUNT 325 K/MM3 (134-434); RBC 3.66 M/mm3 (3.60-5.2); RDW 16.6 % (11.6-15.6); WHITE BLOOD COUNT 10.4 K/mm3 (4.0-10.0)
--- NOTE | 2019-05-30 08:50 | PN ---
Post Progress Note - Subjective Subjective: Ambulating, breast feeding, tolerating PO, lochia decreased, voiding Post Day: 3 Type of Delivery: Primary C/S Vital Signs: Vital Signs Temperature 98.3 F 05/29/19 21:40 Pulse Rate 100 H 05/29/19 21:40 Respiratory Rate 20 05/29/19 21:40 Blood Pressure 129/73 05/29/19 21:40 O2 Sat by Pulse Oximetry (%) 98 05/27/19 02:15 Breast Exam: Yes: Other (dferred) Uterus: Yes: Fundus Firm Incision: Yes: [place] intact Abdomen/GI: Yes: Abdomen soft Lochia, amount: Moderate Extremities: Yes: Calves non-tender Activity: Ambulating - Labs Labs: CBC WBC 10.4 K/mm3 (4.0-10.0) H 05/30/19 06:30 RBC 3.66 M/mm3 (3.60-5.2) 05/30/19 06:30 Hgb 9.7 GM/dL (10.7-15.3) L 05/30/19 06:30 Hct 29.4 % (32.4-45.2) L 05/30/19 06:30 MCV 80.3 fl (80-96) 05/30/19 06:30 MCH 26.6 pg (25.7-33.7) 05/30/19 06:30 MCHC 33.1 g/dl (32.0-36.0) 05/30/19 06:30 RDW 16.6 % (11.6-15.6) H 05/30/19 06:30 Plt Count 325 K/MM3 (134-434) D 05/30/19 06:30 MPV 8.4 fl (7.5-11.1) 05/30/19 06:30 Absolute Neuts (auto) 8.3 K/mm3 (1.5-8.0) H 05/30/19 06:30 Neutrophils % 79.9 % (42.8-82.8) 05/30/19 06:30 Lymphocytes % 12.2 % (8-40) D 05/30/19 06:30 Monocytes % 4.3 % (3.8-10.2) 05/30/19 06:30 Eosinophils % 3.3 % (0-4.5) D 05/30/19 06:30 Basophils % 0.3 % (0-2.0) 05/30/19 06:30 Nucleated RBC % 0 % (0-0) 05/30/19 06:30 Assessment/Plan POD # 3 instable condition, plan to discharge on POD # 4 as per delivering attending -Continue Post-op/PP care
[2019-05-30] MEDS: PRENATAL VITAMINS W/ FOLIC ACID TABLET (FP) PO SCH (10:52)
[2019-05-30] MEDS: ENOXAPARIN NA (PORCINE) 40 MG/0.4 ML DISP.SYRIN SQ SCH (10:52)
[2019-05-30] MEDS: FERROUS SO4 325 MG TABLET (FP) PO SCH ×2 (10:52→21:25)
[2019-05-30] MEDS: ACETAMINOPHEN 325 MG TABLET (FP) PO PRN ×2 (10:54→21:25)
[2019-05-30] MEDS: SIMETHICONE 80 MG TAB.CHEW (FP) PO PRN ×2 (10:55→21:25)
[2019-05-30] MEDS: IBUPROFEN 600 MG TABLET (FP) PO PRN ×2 (10:55→21:25)
[2019-05-30 11:57] VITALS: TEMP 98.2
--- NOTE | 2019-05-31 08:17 | DS ---
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 No: Distention ...Rectal Exam: Yes: WNL Renal/: Yes: Other (voiding without difficulty). No: CVA Tenderness - Left, CVA Tenderness - Right ....Post : Yes: Uterus firm, Uterus non-tender, Slight lochia rubra (no odor) Breast(s): Yes: WNL (mild engorgement in lower part of breast , not tender BF) Musculoskeletal: Yes: WNL Extremities: Yes: WNL. No: Calf Tenderness Edema: Yes Edema: LLE: 1+, RLE: 1+ Integumentary: Yes: WNL Wound/Incision: Yes: Clean/Dry, Well Approximated, Steri Strips, Open to air, [place] Removed. 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 post Op Temp 99.3, 118/58, pulse 117/min post op course uneventful. iv ancef given for 48 hrs due to contd uterine tenderness & high wbc no need of antibiotics any more anemia counselled discharge today Discharge Summary Problems reviewed: Yes Reason For Visit: INDUCTION OF LABOR Current Active Problems Anemia (Acute) delivery due to maternal disorder, delivered, curr hospitaliz (Acute) Elective induction of labor planned (Acute) Failure to progress in labor (Acute) Non-reassuring heart rate or rhythm affecting management of fetus (Acute) Post term at 41 weeks gestation (Acute) Status post section routine follow-up (Acute) Procedures: Principal: labor management,. Primary LFTC/Section Hospital Course: uneventful Health Concerns: anemia Plan of Treatment: as directed Goals: maternal & well being Condition: Stable - Instructions Diet, Activity, Other Instructions: high iron diet Post Instructions DIET: Continue good diet high in protein, calcium, and iron rich foods. Drink at least eight (8) glasses of water daily in addition to other fluids. High Iron Regular diet MEDICATIONS: Continue vitamins and iron as previously directed. Motrin and Tylenol may be taken for minor discomfort. ACTIVITY: Mild to moderate exercise may be started in two (2) weeks. Take frequent rest periods. Resume normal activity after six (6) week check up. WOUND CARE OF OPERATIVE SITE: Continue use of perineal bottle until vaginal discharge stops. Keep area clean. Shower daily. Keep abdominal wound dry. Report any drainage or redness to physician. Tub baths, tampons and douches are not permitted for [address] Breast feeding & or Bottle feeding BREAST CARE: (For those that are not ): If engorgement occurs: Wear tight fitting bra. Take Tylenol or Motrin for pain. Apply cold packs (ice in bags to each breast ) FAMILY PLANNING: There are many control alternatives to pursue and they should be discussed at your first office visit. You may resume sexual activity after your six (6) week check up. (Remember, breast feeding is not a contraceptive) NEXT PHYSICIAN APPOINTMENT: Be certain to call for a one (1) week appointment, unless otherwise directed. RTC 1 Week for wound check Call Clinic or got to Emergency Dept if you have any of the following: Heavy vaginal bleeding Painful urination Leg pain Unusual odor noted to vaginal bleeding High fever Red streaking noted on breast Follow up in 7 days for a incision check Referrals: Etta Lieberman MD [Staff Physician] - Disposition: HOME - Home Medications Comprehensive Discharge Medication List: Ambulatory Orders Prenat 115/Iron Fum/Folic/Dss [ 19 Tablet] 1 tab PO DAILY 05/09/19 Ibuprofen 600 mg PO Q6H PRN #30 tablet 05/29/19 Acetaminophen [Tylenol .Regular Strength -] 500 mg PO Q4H PRN #30 tablet Ferrous Sulfate [Feosol] 325 mg PO BID #60 tab 05/30/19 Ibuprofen [Motrin -] 600 mg PO Q4H PRN tablet 05/30/19 Vitamins (Sjr) - 1 tab PO DAILY tablet 05/30/19 Prescription Drug Monitoring Program (I-STOP) results: I-STOP reviewed and no issues identified
[2019-05-31 09:18] VITALS: BP 131/79; PULSE 98
[2019-05-31] MEDS: PRENATAL VITAMINS W/ FOLIC ACID TABLET (FP) PO SCH (09:40)
[2019-05-31] MEDS: ENOXAPARIN NA (PORCINE) 40 MG/0.4 ML DISP.SYRIN SQ SCH (09:40)
[2019-05-31] MEDS: FERROUS SO4 325 MG TABLET (FP) PO SCH (09:40)
[2019-05-31] MEDS: ACETAMINOPHEN 325 MG TABLET (FP) PO PRN (14:28)
[2019-05-31] MEDS: IBUPROFEN 600 MG TABLET (FP) PO PRN (14:29)
[2019-05-31] MEDS: SIMETHICONE 80 MG TAB.CHEW (FP) PO PRN (14:29)
--- NOTE | 2019-06-02 17:54 | PATH ---
Surgical Pathology Report Patient Name: ANNABEL BOYD Med. Rec. 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 Specimen(s) Received PLACENTA Clinical History Primary , failure to progress Final Diagnosis PLACENTA, SECTION: 430 G THIRD TRIMESTER PLACENTA WITH TRIVASCULAR UMBILICAL CORD AND UNREMARKABLE PLACENTAL MEMBRANES. Electronically Signed Coco Infante M.D. Gross Description The specimen is received fresh labeled placenta and is a 430 gram, 19.0 x 15.0 x 2.2 cm. placenta with attached membranes and umbilical cord. The attached membranes are wilkes, translucent with focal opacities and insert marginally. The umbilical cord measures 10 cm. in length and averages 1.2 cm. in diameter. The cord inserts eccentrically, 3.5 cm. to the nearest margin. No true knots or strictures are identified. Cut surface of the umbilical cord reveals 3 vessels. The surface is de jesus-blue with minimal fibrin deposition and appropriate caliber vessels. The maternal surface is red-brown with focal defects. Sectioning reveals red-brown, spongy parenchyma. No lesions are identified. [place] [facility] Lab Technician sections are submitted in three cassettes as follows: 1- membrane rolls and umbilical cord; 2-3- full thickness sections of placenta. /05/31/2019 saudi05/31/2019
== END 2019-05-31 15:25 | disposition home or self-care (01) | DRG 788 ==
LOC: JLDR 08:20 → J3W 05-27 02:40
PROVIDERS: ADMIT Obstetrics & Gynecology; ATTEND Obstetrics & Gynecology
PROC: 10D00Z1 Extraction of Products of Conception, Low, Open Approach (ICD-10-PCS; principal; 2019-05-27)
DX: O62.1 Secondary uterine inertia (principal); O36.8330 Maternal care for abnormalities of the fetal heart rate or rhythm, third trimester, not applicable or unspecified; O48.0 Post-term pregnancy; O99.213 Obesity complicating pregnancy, third trimester; O99.013 Anemia complicating pregnancy, third trimester; Z3A.41 41 weeks gestation of pregnancy; Z22.330 Carrier of Group B streptococcus; Z37.0 Single live birth
CPT/HCPCS: 36415; 36600; 80048; 82803; 85025; 85610; 85730; 86593; 86850; 86900; 86901; 88307-TC; 90686

== ENCOUNTER 2022-03-11 06:05 | Inpatient (IN) | payer BC ==
[2022-03-11] MEDS ORDERED: ELECTROLYTE-148 SOLN 500 ML IV ONE (06:30)
[2022-03-11 06:43] VITALS: BMI 35.8
[2022-03-11] MEDS ORDERED: CITRIC ACID/SODIUM CITRATE 30 ML UNIT-DOSE CUP PO ONE (06:58)
[2022-03-11] MEDS ORDERED: ONDANSETRON 4 MG/2 ML VIAL IVPUSH PRN (07:53)
[2022-03-11] MEDS ORDERED: morphine SULFATE/PF 1 MG/2 ML (2cc Syringe - QUVA) ONE (07:59)
[2022-03-11] MEDS ORDERED: PHENYLEPHRINE HCL 10 MG/1 ML SINGLE DOSE VIAL ONE ×2 (08:17→08:20)
[2022-03-11] MEDS ORDERED: ceFAZolin SODIUM 1 GM VIAL ONE (08:20)
[2022-03-11] MEDS ORDERED: ONDANSETRON 4 MG/2 ML VIAL ONE (08:20)
[2022-03-11] MEDS ORDERED: OXYTOCIN 10 UNITS/ML VIAL ONE ×2 (08:28→09:23)
[2022-03-11] MEDS ORDERED: METHYLERGONOVINE MALEATE 0.2 MG/1 ML AMP IM PRN (09:33)
[2022-03-11] MEDS ORDERED: IBUPROFEN 800 MG/8 ML IJ IVPB PRN (09:33)
[2022-03-11 10:01] LABS: CORD BASE EXCESS -4.1 mmol/L (0-2); CORD HCO3 23.3 mmHg (20-29); CORD PCO2 51.2 mmHg (30-78); CORD pH 7.276 (7.14-7.44)
[2022-03-11 10:04] LABS: CORD HCO3 25.1 mmHg (20-29); CORD PCO2 64.2 mmHg (30-78)
[2022-03-11] MEDS: OXYTOCIN 20 UNITS in 0.9% NS 20 UNIT/1,000 ML INFUS.BAG IV SCH ×2 (11:10→22:30)
[2022-03-11] MEDS: CEFAZOLIN 1 GM in DEXTROSE 5%-WATER - 50 ML IVPB SCH ×2 (16:53→23:48)
[2022-03-11] MEDS ORDERED: oxyCODONE HCL 5 MG TABLET PO PRN (21:38)
[2022-03-12] MEDS: oxyCODONE HCL 5 MG TABLET PO PRN ×2 (02:49→09:29)
[2022-03-12] MEDS: SIMETHICONE 80 MG TAB.CHEW (FP) PO PRN ×3 (02:49→21:48)
[2022-03-12] MEDS: IBUPROFEN 600 MG TABLET (FP) PO PRN ×2 (05:44→21:48)
[2022-03-12] MEDS: CEFAZOLIN 1 GM in DEXTROSE 5%-WATER - 50 ML IVPB SCH (08:13)
[2022-03-12] MEDS: PRENATAL VITAMINS W/ FOLIC ACID TABLET (FP) PO SCH (09:36)
[2022-03-12] MEDS: ENOXAPARIN NA (PORCINE) 40 MG/0.4 ML DISP.SYRIN SQ SCH (09:36)
[2022-03-12] MEDS ORDERED: BISACODYL 10 MG SUPP.RECT RC PRN (09:38)
[2022-03-12 10:13] LABS: BASO % 0.2 % (0-2.0); HEMOGLOBIN 10.9 GM/dL (10.7-15.3); LYMPH % 7.7 % (8-40); MCH 26.5 pg (25.7-33.7); MCHC 32.9 g/dl (32.0-36.0); MEAN CELL VOLUME 80.4 fl (80-96); MEAN PLT VOLUME 8.7 fl (7.5-11.1); MONO % 5.6 % (3.8-10.2); NEUT % 85.5 % (42.8-82.8); PLATELET COUNT 221 10^3/uL (134-434); RDW 15.9 % (11.6-15.6); WHITE BLOOD COUNT 13.8 K/mm3 (4.0-10.0)
[2022-03-12] MEDS: ACETAMINOPHEN 325 MG TABLET (FP) PO PRN (14:53)
[2022-03-12] MEDS: FERROUS SO4 325 MG TABLET (FP) PO SCH (21:48)
[2022-03-12] MEDS: SENNOSIDES/DOCUSATE COMBO (SENNA PLUS) TABLET (UD) PO PRN (21:48)
[2022-03-13] MEDS: IBUPROFEN 600 MG TABLET (FP) PO PRN (04:35)
[2022-03-13] MEDS: SIMETHICONE 80 MG TAB.CHEW (FP) PO PRN ×2 (04:35→21:00)
[2022-03-13] MEDS: ACETAMINOPHEN 325 MG TABLET (FP) PO PRN ×2 (07:54→20:00)
[2022-03-13] MEDS: ENOXAPARIN NA (PORCINE) 40 MG/0.4 ML DISP.SYRIN SQ SCH (09:11)
[2022-03-13] MEDS: FERROUS SO4 325 MG TABLET (FP) PO SCH ×2 (09:11→21:00)
[2022-03-13] MEDS: PRENATAL VITAMINS W/ FOLIC ACID TABLET (FP) PO SCH (09:11)
[2022-03-13] MEDS: OXYTOCIN 20 UNITS in 0.9% NS 20 UNIT/1,000 ML INFUS.BAG IV SCH (19:11)
[2022-03-13] MEDS: ELECTROLYTE-148 SOLN 1,000 ML IV SCH (19:12)
[2022-03-13] MEDS: oxyCODONE HCL 5 MG TABLET PO PRN (20:00)
[2022-03-13] MEDS: SENNOSIDES/DOCUSATE COMBO (SENNA PLUS) TABLET (UD) PO PRN (21:00)
[2022-03-14] MEDS: SIMETHICONE 80 MG TAB.CHEW (FP) PO PRN (03:15)
[2022-03-14] MEDS: oxyCODONE HCL 5 MG TABLET PO PRN (03:15)
[2022-03-14 06:48] LABS: BASO % 0.2 % (0-2.0); EOS % 1.5 % (0-4.5); HEMATOCRIT 30.3 % (32.4-45.2); HEMOGLOBIN 10.2 GM/dL (10.7-15.3); LYMPH % 9.7 % (8-40); MCHC 33.8 g/dl (32.0-36.0); MEAN CELL VOLUME 79.9 fl (80-96); MEAN PLT VOLUME 8.5 fl (7.5-11.1); NEUT % 83.6 % (42.8-82.8); PLATELET COUNT 262 10^3/uL (134-434); RBC 3.79 M/mm3 (3.60-5.2); RDW 16.2 % (11.6-15.6); WHITE BLOOD COUNT 11.3 K/mm3 (4.0-10.0)
[2022-03-14] MEDS: PRENATAL VITAMINS W/ FOLIC ACID TABLET (FP) PO SCH (10:42)
[2022-03-14] MEDS: FERROUS SO4 325 MG TABLET (FP) PO SCH (10:42)
[2022-03-14] MEDS: ENOXAPARIN NA (PORCINE) 40 MG/0.4 ML DISP.SYRIN SQ SCH (10:42)
[2022-03-14 10:54] VITALS: BP 130/75; PULSE 90; RESP 18; TEMP 98.9
== END 2022-03-14 12:40 | disposition home or self-care (01) | DRG 786 ==
LOC: JLDR 06:05 → J3W 11:44
PROVIDERS: ADMIT Obstetrics & Gynecology; ATTEND Obstetrics & Gynecology
PROC: 10D00Z1 Extraction of Products of Conception, Low, Open Approach (ICD-10-PCS; principal; 2022-03-11)
DX: O34.211 Maternal care for low transverse scar from previous cesarean delivery (principal); U07.1 COVID-19; O98.52 Other viral diseases complicating childbirth; O34.13 Maternal care for benign tumor of corpus uteri, third trimester; D25.2 Subserosal leiomyoma of uterus; Z3A.39 39 weeks gestation of pregnancy; Z37.0 Single live birth
CPT/HCPCS: 36415; 36600; 82803; 85025; 87086; 88307-TC